=== PATIENT | male | born 1965 | race Caucasian/White ===

== ENCOUNTER 2022-11-10 12:32 | Inpatient (IN) | payer BC ==
[~2022-11-10] VITALS: Ht 172.7 cm; Wt 61.5 kg
[~2022-11-10 12:32] MED LIST: DILT-26 MT; EMPA10TA PO; LOSA100T32 PO
[2022-11-10] MEDS ORDERED: ASPIRIN 325MG EC TABLET PO ONE (19:00)
[2022-11-10 19:09] LABS: BASOPHILS % 0.5 % (0.0-2.0); EOSINOPHILS % 1.1 % (0.0-5.0); HEMATOCRIT. 29.4 % (42.0-52.0); LYMPHOCYTES % 11.8 % (20.0-50.0); MEAN CORPUSCULAR VOLUME 88.3 fL (80.0-94.0); MONOCYTES % 5.6 % (2.0-8.0); PLATELET 450 x1000/uL (130-400); RED BLOOD CELL COUNT 3.33 mill/uL (4.7-6.1); RED CELL DISTRIBUTION WIDTH 15.4 % (11.6-14.6)
[2022-11-10 19:20] LABS: CHLORIDE 109 mEq/L (98-107)
[2022-11-11] MEDS ORDERED: CEFTRIAXONE 1 G PREMIX 50 ML IV SCH (08:30)
[2022-11-11 09:16] VITALS: BP 147/86
[2022-11-11 09:25] VITALS: BP 147/86
[2022-11-11] MEDS ORDERED: DEXTROSE 50% WATER 50ML SYRINGE IV PRN ×2 (10:30→12:00)
[2022-11-11] MEDS ORDERED: FUROSEMIDE 40MG/4ML VIAL IV NR (11:30)
[2022-11-11] MEDS ORDERED: ONDANSETRON HCL 4MG/2ML INJ IV PRN (11:30)
[2022-11-11] MEDS ORDERED: ACETAMINOPHEN 325MG TABLET PO PRN (11:30)
[2022-11-11] MEDS ORDERED: MAGNESIUM/ALUMINUM HYDROXIDE/SIMETHICONE 30ML UDC PO PRN (11:30)
[2022-11-11] MEDS ORDERED: CLONIDINE 0.1MG TABLET PO PRN (11:30)
[2022-11-11] MEDS ORDERED: GUAIFENESIN 200MG/10ML SUGAR FREE UDC PO PRN (11:30)
[2022-11-11] MEDS: CEFTRIAXONE 1,000 MG in DEXTROSE 5% WATER 50 ML IV SCH (11:40)
[2022-11-11] MEDS ORDERED: BLOOD SUGAR DIAGNOSTIC STRIP TEST SCH (11:50)
[2022-11-11] MEDS ORDERED: INSULIN LISPRO 100 UNITS/ML SUBCUT SCH (12:20)
[2022-11-11] MEDS: INSULIN LISPRO 100 UNITS/ML SUBCUT SCH ×3 (12:20→21:00)
[2022-11-11] MEDS: BLOOD SUGAR DIAGNOSTIC STRIP TEST SCH ×3 (12:32→21:00)
[2022-11-11] MEDS ORDERED: METF-874 PO (12:44)
[2022-11-11] MEDS ORDERED: AMLO10TA80 PO (12:44)
[2022-11-11 12:46] VITALS: BP 132/85
[2022-11-11] MEDS ORDERED: ASPI-1497 PO (12:47)
[2022-11-11] MEDS ORDERED: ASPI-1406 PO (12:47)
[2022-11-11] MEDS ORDERED: CLOP-31 PO (12:55)
[2022-11-11] MEDS ORDERED: MECL-159 PO (12:55)
[2022-11-11] MEDS ORDERED: SEMA0.25 SQ (12:57)
[2022-11-11] MEDS ORDERED: ATOR-2 PO (12:57)
[2022-11-11] MEDS ORDERED: METF-416 MT (12:58)
[2022-11-11] MEDS ORDERED: AZITHROMYCIN 500 MG TABLET PO NR (14:30)
[2022-11-11] MEDS ORDERED: ENOXAPARIN 40MG/0.4ML SYR SUBCUT SCH (15:00)
[2022-11-11 15:21] LABS: CREATINE KINASE 87 IU/L (39-308); CREATINE KINASE MB FRACTION 2.8 ng/mL (0.5-3.6)
[2022-11-11 16:00] VITALS: BP 147/65
[2022-11-11 16:05] LABS: PROTHROMBIN TIME 11.2 sec (9.6-11.0)
[2022-11-11 16:37] LABS: FERRITIN 217 ng/mL (22-322)
[2022-11-11 16:47] LABS: VITAMIN B12 SERUM >2000 pg/mL pg/mL (211-911)
[2022-11-11 20:00] VITALS: BP 153/89
[2022-11-11 20:22] LABS: CREATINE KINASE MB FRACTION 2.5 ng/mL (0.5-3.6)
[2022-11-11] MEDS: FAMOTIDINE 20MG TABLET PO SCH (20:45)
[2022-11-11] MEDS: BUDESONIDE 0.5MG/2ML NEB HHN SCH (21:52)
[2022-11-11] MEDS: IPRATROPIUM BROMIDE (0.02%) 0.5MG/2.5ML NEB HHN SCH (21:53)
[2022-11-12] VITALS: BP 151/89
[2022-11-12 02:03] LABS: CREATINE KINASE MB FRACTION 2.7 ng/mL (0.5-3.6)
[2022-11-12] MEDS: IPRATROPIUM BROMIDE (0.02%) 0.5MG/2.5ML NEB HHN SCH ×4 (03:28→21:09)
[2022-11-12 04:00] VITALS: BP 136/82
[2022-11-12 06:17] LABS: BASOPHILS % 0.7 % (0.0-2.0); EOSINOPHILS % 1.3 % (0.0-5.0); HEMATOCRIT. 26.6 % (42.0-52.0); HEMOGLOBIN. 9.2 g/dL (14.0-18.0); LYMPHOCYTES % 15.9 % (20.0-50.0); MEAN CORPUSCULAR HEMOGLOBIN 30.6 pg (28.0-32.0); MEAN CORPUSCULAR VOLUME 88.1 fL (80.0-94.0); MEAN PLATELET VOLUME 6.2 fl (7.4-10.4); MONOCYTES % 6.3 % (2.0-8.0); NEUTROPHILS % 75.8 % (40.0-76.0); PLATELET 410 x1000/uL (130-400); RED BLOOD CELL COUNT 3.02 mill/uL (4.7-6.1); RED CELL DISTRIBUTION WIDTH 15.4 % (11.6-14.6)
[2022-11-12] MEDS: BLOOD SUGAR DIAGNOSTIC STRIP TEST SCH ×4 (06:42→20:57)
[2022-11-12] MEDS: INSULIN LISPRO 100 UNITS/ML SUBCUT SCH ×4 (07:20→21:01)
[2022-11-12 08:10] LABS: CHLORIDE 109 mEq/L (98-107)
[2022-11-12] MEDS: BUDESONIDE 0.5MG/2ML NEB HHN SCH (08:21)
[2022-11-12 08:31] LABS: T4 FREE 1.36 ng/dL (0.76-1.46)
[2022-11-12 08:40] VITALS: BP 150/80
[2022-11-12] MEDS ORDERED: ASPIRIN 81MG EC TABLET PO SCH (09:00)
[2022-11-12] MEDS: AMLODIPINE 5MG TABLET PO SCH (09:55)
[2022-11-12] MEDS: FAMOTIDINE 20MG TABLET PO SCH ×2 (09:55→20:56)
[2022-11-12] MEDS ORDERED: SODIUM BICARBONATE 4% (2.4MEQ) 5ML VIAL IV ONE (11:08)
[2022-11-12 12:01] VITALS: BP 146/69
[2022-11-12] MEDS: FERROUS SULFATE 325MG TABLET PO SCH ×2 (13:49→18:06)
[2022-11-12] MEDS: LOSARTAN POTASSIUM 25 MG TABLET PO SCH (13:49)
[2022-11-12] MEDS: CEFTRIAXONE 1,000 MG in DEXTROSE 5% WATER 50 ML IV SCH (13:50)
[2022-11-12 16:04] VITALS: BP 128/77
[2022-11-12 20:00] VITALS: BP 144/83
[2022-11-12 20:37] LABS: FOLIC ACID (FOLATE) SERUM > 20.00 ng/mL (>5.38)
[2022-11-12] MEDS: CARVEDILOL 3.125 MG TABLET PO SCH (20:57)
[2022-11-13] VITALS: BP 136/79
[2022-11-13] MEDS: IPRATROPIUM BROMIDE (0.02%) 0.5MG/2.5ML NEB HHN SCH ×4 (01:24→20:44)
[2022-11-13 04:00] VITALS: BP 140/80
[2022-11-13 06:15] LABS: HEMATOCRIT 27.4 % (42.0-52.0); HEMOGLOBIN 9.4 g/dL (14.0-18.0); MEAN CORPUSCULAR HEMOGLOBIN 30.6 pg (28.0-32.0); PLATELET 400 x1000/uL (130-400); RED BLOOD CELL COUNT 3.08 mill/uL (4.7-6.1); RED CELL DISTRIBUTION WIDTH 14.9 % (11.6-14.6)
[2022-11-13] MEDS: FERROUS SULFATE 325MG TABLET PO SCH ×3 (07:20→18:09)
[2022-11-13] MEDS: INSULIN LISPRO 100 UNITS/ML SUBCUT SCH ×4 (07:20→21:44)
[2022-11-13] MEDS: BLOOD SUGAR DIAGNOSTIC STRIP TEST SCH ×4 (07:36→21:42)
[2022-11-13 07:42] LABS: PHOSPHORUS 4.4 mg/dL (2.5-4.9)
[2022-11-13 08:04] VITALS: BP 143/85
[2022-11-13] MEDS ORDERED: SODIUM BICARBONATE 4% (2.4MEQ) 5ML VIAL IV ONE (09:37)
[2022-11-13 12:00] VITALS: BP 146/76
[2022-11-13] MEDS: DOCUSATE SODIUM 100MG CAPSULE PO PRN (12:47)
[2022-11-13] MEDS: LOSARTAN POTASSIUM 25 MG TABLET PO SCH (12:47)
[2022-11-13] MEDS: FAMOTIDINE 20MG TABLET PO SCH ×2 (12:47→21:41)
[2022-11-13] MEDS: CEFTRIAXONE 1,000 MG in DEXTROSE 5% WATER 50 ML IV SCH (12:49)
[2022-11-13] MEDS: AMLODIPINE 5MG TABLET PO SCH (12:56)
[2022-11-13] MEDS: CARVEDILOL 3.125 MG TABLET PO SCH (12:56)
[2022-11-13 16:00] VITALS: BP 149/87
[2022-11-13 20:00] VITALS: BP 142/87
[2022-11-13] MEDS: ATORVASTATIN CALCIUM 40MG TABLET PO SCH (21:41)
[2022-11-13] MEDS: CARVEDILOL 6.25 MG TABLET PO SCH (21:41)
[2022-11-14] VITALS: BP 138/78
[2022-11-14] MEDS: IPRATROPIUM BROMIDE (0.02%) 0.5MG/2.5ML NEB HHN SCH ×4 (01:09→21:10)
[2022-11-14 05:13] VITALS: BP 139/79
[2022-11-14] MEDS: BLOOD SUGAR DIAGNOSTIC STRIP TEST SCH ×4 (06:13→21:40)
[2022-11-14 06:41] LABS: BASOPHILS % 0.7 % (0.0-2.0); EOSINOPHILS % 1.7 % (0.0-5.0); HEMATOCRIT. 31.5 % (42.0-52.0); HEMOGLOBIN. 10.7 g/dL (14.0-18.0); LYMPHOCYTES % 16.3 % (20.0-50.0); MEAN CORPUSCULAR HEMOGLOBIN 30.4 pg (28.0-32.0); MEAN PLATELET VOLUME 6.5 fl (7.4-10.4); MONOCYTES % 7.4 % (2.0-8.0); NEUTROPHILS % 73.9 % (40.0-76.0); PLATELET 452 x1000/uL (130-400); RED BLOOD CELL COUNT 3.54 mill/uL (4.7-6.1); RED CELL DISTRIBUTION WIDTH 14.7 % (11.6-14.6)
[2022-11-14 06:59] LABS: CHLORIDE 104 mEq/L (98-107)
[2022-11-14 07:15] LABS: PHOSPHORUS 3.6 mg/dL (2.5-4.9)
[2022-11-14 08:04] VITALS: BP 129/78
[2022-11-14] MEDS: FUROSEMIDE 40MG/4ML VIAL IVP SCH (09:16)
[2022-11-14] MEDS: CARVEDILOL 6.25 MG TABLET PO SCH ×2 (09:16→21:40)
[2022-11-14] MEDS: FERROUS SULFATE 325MG TABLET PO SCH ×3 (09:16→17:34)
[2022-11-14] MEDS: AMLODIPINE 5MG TABLET PO SCH (09:16)
[2022-11-14] MEDS: LOSARTAN POTASSIUM 25 MG TABLET PO SCH (09:16)
[2022-11-14] MEDS: FAMOTIDINE 20MG TABLET PO SCH ×2 (09:16→21:39)
[2022-11-14] MEDS: DOCUSATE SODIUM 100MG CAPSULE PO PRN (09:16)
[2022-11-14] MEDS: INSULIN LISPRO 100 UNITS/ML SUBCUT SCH ×4 (09:18→21:00)
[2022-11-14 12:04] VITALS: BP 142/84
[2022-11-14] MEDS: CEFTRIAXONE 1,000 MG in DEXTROSE 5% WATER 50 ML IV SCH (13:49)
[2022-11-14] MEDS ORDERED: LACTULOSE 20G/30ML UDC PO NR (14:00)
[2022-11-14 16:00] VITALS: BP 149/86
[2022-11-14] MEDS: POLYETHYLENE GLYCOL 3350 (17GM) 1 DOSE PACK PO SCH (18:49)
[2022-11-14 20:00] VITALS: BP 152/80
[2022-11-14] MEDS: ATORVASTATIN CALCIUM 40MG TABLET PO SCH (21:40)
[2022-11-15] VITALS: BP 138/78
[2022-11-15] MEDS: IPRATROPIUM BROMIDE (0.02%) 0.5MG/2.5ML NEB HHN SCH ×2 (01:11→09:45)
[2022-11-15 04:00] VITALS: BP 134/74
[2022-11-15 06:48] LABS: HEMATOCRIT 27.9 % (42.0-52.0); HEMOGLOBIN 9.7 g/dL (14.0-18.0); MEAN CORPUSCULAR HEMOGLOBIN 30.5 pg (28.0-32.0); MEAN CORPUSCULAR VOLUME 87.4 fL (80.0-94.0); PLATELET 409 x1000/uL (130-400); RED BLOOD CELL COUNT 3.19 mill/uL (4.7-6.1); RED CELL DISTRIBUTION WIDTH 14.6 % (11.6-14.6)
[2022-11-15] MEDS: BLOOD SUGAR DIAGNOSTIC STRIP TEST SCH ×2 (07:01→11:50)
[2022-11-15 07:02] LABS: CHLORIDE 105 mEq/L (98-107)
[2022-11-15] MEDS: INSULIN LISPRO 100 UNITS/ML SUBCUT SCH ×2 (07:02→11:54)
[2022-11-15 07:08] LABS: PHOSPHORUS 3.5 mg/dL (2.5-4.9)
[2022-11-15] MEDS: FERROUS SULFATE 325MG TABLET PO SCH ×2 (09:28→11:57)
[2022-11-15] MEDS: DOCUSATE SODIUM 100MG CAPSULE PO PRN (09:28)
[2022-11-15] MEDS: LOSARTAN POTASSIUM 25 MG TABLET PO SCH (09:29)
[2022-11-15] MEDS: AMLODIPINE 5MG TABLET PO SCH (09:29)
[2022-11-15] MEDS: FAMOTIDINE 20MG TABLET PO SCH (09:29)
[2022-11-15] MEDS: FUROSEMIDE 40MG/4ML VIAL IVP SCH (09:29)
[2022-11-15] MEDS: POLYETHYLENE GLYCOL 3350 (17GM) 1 DOSE PACK PO SCH (09:29)
[2022-11-15] MEDS: CARVEDILOL 6.25 MG TABLET PO SCH (09:29)
[2022-11-15] MEDS ORDERED: ASPI-1497 PO ×2 (10:24→11:31)
[2022-11-15] MEDS ORDERED: AMLO5TAB88 PO ×2 (10:24→11:31)
[2022-11-15] MEDS ORDERED: LOSA25TA3 PO ×2 (10:24→11:31)
[2022-11-15] MEDS ORDERED: FURO-151 MT ×2 (10:24→11:31)
[2022-11-15] MEDS ORDERED: COR6 PO ×2 (10:24→11:31)
[2022-11-15] MEDS ORDERED: SORBITOL 70% SOLN 30ML PO SCH (11:00)
[2022-11-15] MEDS ORDERED: NA PHOS,M-B/NA PHOS,DI-BA ENEMA 118ML PR NR (11:30)
[2022-11-15] MEDS: CEFTRIAXONE 1,000 MG in DEXTROSE 5% WATER 50 ML IV SCH (11:57)
[2022-11-15 12:00] VITALS: BP 138/77
[2022-11-15 14:31] VITALS: BP 138/77
== END 2022-11-15 16:10 | disposition home or self-care (01) | DRG 291 ==
LOC: ER 12:40 → 3WST 11-11 05:37
PROVIDERS: ADMIT Internal Medicine; ATTEND Internal Medicine
PROC: 0W9B3ZZ Drainage of Left Pleural Cavity, Percutaneous Approach (ICD-10-PCS; principal; 2022-11-12)
PROC: 0W993ZZ Drainage of Right Pleural Cavity, Percutaneous Approach (ICD-10-PCS; 2022-11-13)
DX: I11.0 Hypertensive heart disease with heart failure (principal); I50.23 Acute on chronic systolic (congestive) heart failure; J96.01 Acute respiratory failure with hypoxia; N17.9 Acute kidney failure, unspecified; E44.1 Mild protein-calorie malnutrition; I31.39 Other pericardial effusion (noninflammatory); J91.8 Pleural effusion in other conditions classified elsewhere; D64.9 Anemia, unspecified; E11.9 Type 2 diabetes mellitus without complications; I27.29 Other secondary pulmonary hypertension; E78.00 Pure hypercholesterolemia, unspecified; D72.829 Elevated white blood cell count, unspecified; Z20.822 Contact with and (suspected) exposure to COVID-19; I25.2 Old myocardial infarction; Z86.16 Personal history of COVID-19; Z86.73 Personal history of transient ischemic attack (TIA), and cerebral infarction without residual deficits; Z87.891 Personal history of nicotine dependence; Z68.20 Body mass index [BMI] 20.0-20.9, adult
CPT/HCPCS: 32555; 36415; 71045; 76604; 80048; 80053; 80061; 82040; 82550; 82553; 82607; 82728; 82746; 82962; 83036; 83540; 83550; 83605; 83615; 83735; 83880; 83986; 84100; 84145; 84439; 84443; 84484; 85025; 85027; 87426; 93005; 93306; 93970; 94640; 97162; 97166; 99285; C9803; J0696; J1650; J1815; J1940; J3490; J7060; J7626

== ENCOUNTER 2023-11-15 16:34 | Inpatient (IN) | payer BC, MEDICAID ==
[~2023-11-15] VITALS: Ht 170.2 cm; Wt 54.0 kg
[~2023-11-15 16:34] MED LIST changes: +AMLO5TAB88 PO; +ASPI-1497 PO; +ATOR-2 PO; +COR6 PO; -DILT-26 MT; -EMPA10TA PO; +FURO-151 MT; +LOSA-412 PO; -LOSA100T32 PO; +METF-416 MT; +SEMA0.25 SQ
[2023-11-15 19:26] LABS: PROTHROMBIN TIME 11.2 sec (9.6-11.0)
[2023-11-15 19:32] LABS: HEMATOCRIT. 27.7 % (42.0-52.0); HEMOGLOBIN. 9.6 g/dL (14.0-18.0); LYMPHOCYTES % 22.3 % (20.0-50.0); MEAN CORPUSCULAR HEMOGLOBIN 32.8 pg (28.0-32.0); MEAN CORPUSCULAR HGB CONC 34.7 g/dL (31.0-37.0); MEAN CORPUSCULAR VOLUME 94.7 fL (80.0-94.0); NEUTROPHILS % 66.7 % (40.0-76.0); PLATELET 280 x1000/uL (130-400); RED BLOOD CELL COUNT 2.93 mill/uL (4.7-6.1); RED CELL DISTRIBUTION WIDTH 15.7 % (11.6-14.6); WHITE BLOOD COUNT 9.5 x1000/uL (4.5-11.0)
[2023-11-15 19:33] LABS: ALANINE AMINOTRANSFERASE 10 IU/L (10-49); ALBUMIN 3.4 g/dL (3.2-4.8); ASPARTATE AMINOTRANSFERASE 24 IU/L (<34); BILIRUBIN TOTAL 0.3 mg/dL (0.1-1.0); CALCIUM 8.2 mg/dL (8.7-10.4); CARBON DIOXIDE 32 mEq/L (21-32); CHLORIDE 101 mEq/L (98-107); CREATININE 2.1 mg/dL (0.6-1.3); GLUCOSE 158 mg/dL (70-105); POTASSIUM 4.5 mEq/L (3.5-5.1); PROTEIN TOTAL 6.3 g/dL (6.0-8.3); SODIUM 137 mEq/L (136-145); TROPONIN I HIGH SENSITIVITY 33 ng/L (3.0-53); UREA NITROGEN BLOOD 43 mg/dL (9-23)
[2023-11-15 19:35] LABS: DIFFERENTIAL COMMENT 1
[2023-11-16] VITALS (10 sets, daily range): BP systolic 150–179; BP diastolic 77–95; PULSE 74–82; RESP 18–20; TEMP 97.3–98; O2SAT 97
[2023-11-16] MEDS: FUROSEMIDE 40MG/4ML VIAL IVP ONE (00:20)
[2023-11-16] MEDS ORDERED: IPRATROPIUM BROMIDE (0.02%) 0.5MG/2.5ML NEB HHN PRN (02:30)
[2023-11-16] MEDS ORDERED: DEXTROSE 50% WATER 50ML SYRINGE IV PRN (02:45)
[2023-11-16] MEDS ORDERED: FUROSEMIDE 40MG/4ML VIAL IVP NR (03:00)
[2023-11-16] MEDS: CLONIDINE 0.1MG TABLET PO PRN (04:06)
[2023-11-16] MEDS ORDERED: CLOP75TA33 PO (07:28)
[2023-11-16] MEDS: BLOOD SUGAR DIAGNOSTIC STRIP TEST SCH (07:40)
[2023-11-16] MEDS ORDERED: METFORMIN HCL 500MG TABLET PO SCH (08:10)
[2023-11-16] MEDS: INSULIN LISPRO 100 UNITS/ML SUBCUT SCH (08:10)
[2023-11-16] MEDS: IPRATROPIUM BROMIDE (0.02%) 0.5MG/2.5ML NEB HHN SCH (08:11)
[2023-11-16] MEDS: ENOXAPARIN 40MG/0.4ML SYR SUBCUT SCH (09:15)
[2023-11-16] MEDS: FUROSEMIDE 100MG/10ML VIAL IVP SCH (09:15)
[2023-11-16] MEDS ORDERED: FUROSEMIDE 40MG/4ML VIAL IVP SCH (11:15)
[2023-11-16 12:35] LABS: HEMATOCRIT 27.7 % (42.0-52.0); HEMOGLOBIN 9.8 g/dL (14.0-18.0); MEAN CORPUSCULAR HEMOGLOBIN 33.3 pg (28.0-32.0); MEAN CORPUSCULAR HGB CONC 35.3 g/dL (31.0-37.0); MEAN CORPUSCULAR VOLUME 94.5 fL (80.0-94.0); PLATELET 279 x1000/uL (130-400); RED BLOOD CELL COUNT 2.93 mill/uL (4.7-6.1); RED CELL DISTRIBUTION WIDTH 15.6 % (11.6-14.6); WHITE BLOOD COUNT 5.9 x1000/uL (4.5-11.0)
[2023-11-16 13:30] LABS: CALCIUM 8.6 mg/dL (8.7-10.4); CARBON DIOXIDE 33 mEq/L (21-32); CHLORIDE 104 mEq/L (98-107); CREATININE 2.1 mg/dL (0.6-1.3); GLUCOSE 193 mg/dL (70-105); PHOSPHORUS 3.1 mg/dL (2.5-4.9); POTASSIUM 3.8 mEq/L (3.5-5.1); SODIUM 138 mEq/L (136-145); T4 FREE 1.28 ng/dL (0.89-1.76); THYROID STIMULATING HORMONE 1.98 uIU/mL (0.55-4.78); UREA NITROGEN BLOOD 47 mg/dL (9-23)
[2023-11-16] MEDS ORDERED: CARV12.545 PO (14:13)
[2023-11-16] MEDS: MAGNESIUM 2 G PREMIX 50 ML IV NR (15:21)
[2023-11-16] MEDS: FUROSEMIDE 40MG/4ML VIAL IVP SCH (16:29)
[2023-11-16] MEDS: LOSARTAN 50 MG TABLET PO SCH (17:40)
[2023-11-16 20:16] LABS: CALCIUM 8.7 mg/dL (8.7-10.4); CREATININE 2.1 mg/dL (0.6-1.3)
[2023-11-17] VITALS (11 sets, daily range): BP systolic 137–189; BP diastolic 70–99; PULSE 66–80; RESP 14–22; TEMP 97.3–98.2
[2023-11-17 06:09] LABS: BASOPHILS % 0.6 % (0.0-2.0); EOSINOPHILS % 3.6 % (0.0-5.0); HEMATOCRIT. 30.8 % (42.0-52.0); HEMOGLOBIN. 10.6 g/dL (14.0-18.0); MEAN CORPUSCULAR HEMOGLOBIN 32.7 pg (28.0-32.0); MEAN CORPUSCULAR HGB CONC 34.6 g/dL (31.0-37.0); MEAN CORPUSCULAR VOLUME 94.5 fL (80.0-94.0); MEAN PLATELET VOLUME 6.8 fl (7.4-10.4); MONOCYTES % 7.1 % (2.0-8.0); NEUTROPHILS % 63.7 % (40.0-76.0); PLATELET 299 x1000/uL (130-400); RED BLOOD CELL COUNT 3.26 mill/uL (4.7-6.1); RED CELL DISTRIBUTION WIDTH 15.5 % (11.6-14.6)
[2023-11-17 06:40] LABS: ALANINE AMINOTRANSFERASE 14 IU/L (10-49); ALBUMIN 3.2 g/dL (3.2-4.8); ASPARTATE AMINOTRANSFERASE 21 IU/L (<34); BILIRUBIN TOTAL 0.5 mg/dL (0.1-1.0); CALCIUM 8.4 mg/dL (8.7-10.4); CARBON DIOXIDE 33 mEq/L (21-32); CHLORIDE 101 mEq/L (98-107); CREATININE 2.1 mg/dL (0.6-1.3); GLUCOSE 105 mg/dL (70-105); IRON 48 ug/dL (65-175); PHOSPHORUS 3.8 mg/dL (2.5-4.9); POTASSIUM 3.9 mEq/L (3.5-5.1); PROTEIN TOTAL 6.7 g/dL (6.0-8.3); SODIUM 140 mEq/L (136-145); TOTAL IRON BINDING CAPACITY 215 ug/dl (250-425); UREA NITROGEN BLOOD 46 mg/dL (9-23)
[2023-11-17] MEDS ORDERED: TAMS-11 PO (07:28)
[2023-11-17] MEDS: CLOPIDOGREL 75MG TABLET PO SCH (08:59)
[2023-11-17] MEDS: AMLODIPINE 5MG TABLET PO SCH (09:00)
[2023-11-17] MEDS: ASPIRIN 81MG EC TABLET PO SCH (09:00)
[2023-11-17] MEDS ORDERED: LOSARTAN 25 MG TABLET PO SCH (09:00)
[2023-11-17] MEDS ORDERED: NON FORMULARY PATIENT HOME MED XX SCH (10:30)
[2023-11-17 14:11] LABS: FERRITIN 471 ng/mL (22-322); FOLIC ACID (FOLATE) SERUM > 20.00 ng/mL (>5.38); VITAMIN B12 SERUM 1480 pg/mL (211-911)
[2023-11-17] MEDS: HYDRALAZINE HCL 25MG TABLET PO SCH (14:25)
[2023-11-17] MEDS: SACUBITRIL/VALSARTAN 24MG/26MG TABLET PO SCH (17:23)
[2023-11-17] MEDS: CARVEDILOL 3.125 MG TABLET PO SCH (21:07)
[2023-11-18] VITALS (11 sets, daily range): BP systolic 84–157; BP diastolic 52–83; PULSE 70–96; RESP 16–20; TEMP 97.5–98.6; O2SAT 95–96
[2023-11-18 07:11] LABS: BASOPHILS % 0.9 % (0.0-2.0); EOSINOPHILS % 3.2 % (0.0-5.0); HEMATOCRIT. 32.1 % (42.0-52.0); LYMPHOCYTES % 22.6 % (20.0-50.0); MEAN CORPUSCULAR HEMOGLOBIN 32.3 pg (28.0-32.0); MEAN CORPUSCULAR HGB CONC 34.3 g/dL (31.0-37.0); MEAN CORPUSCULAR VOLUME 94.1 fL (80.0-94.0); MEAN PLATELET VOLUME 6.9 fl (7.4-10.4); MONOCYTES % 8.5 % (2.0-8.0); NEUTROPHILS % 64.8 % (40.0-76.0); PLATELET 293 x1000/uL (130-400); RED BLOOD CELL COUNT 3.41 mill/uL (4.7-6.1); RED CELL DISTRIBUTION WIDTH 15.5 % (11.6-14.6); WHITE BLOOD COUNT 6.7 x1000/uL (4.5-11.0)
[2023-11-18 07:13] LABS: CALCIUM 8.1 mg/dL (8.7-10.4); CARBON DIOXIDE 33 mEq/L (21-32); CHLORIDE 97 mEq/L (98-107); GLUCOSE 113 mg/dL (70-105); PHOSPHORUS 4.8 mg/dL (2.5-4.9); POTASSIUM 3.5 mEq/L (3.5-5.1); SODIUM 138 mEq/L (136-145); UREA NITROGEN BLOOD 43 mg/dL (9-23)
[2023-11-18] MEDS: AMLODIPINE 10MG TABLET PO SCH (10:12)
[2023-11-18] MEDS: METOLAZONE 2.5MG TABLET PO SCH (10:13)
[2023-11-18] MEDS: ENOXAPARIN 30MG/0.3ML SYR SUBCUT SCH (10:14)
[2023-11-18] MEDS: POTASSIUM CHLORIDE 20MEQ TABLET SR PO NR (14:55)
[2023-11-18] MEDS: LACTULOSE 20G/30ML UDC PO NR (17:46)
[2023-11-19] VITALS (9 sets, daily range): BP systolic 117–136; BP diastolic 58–75; PULSE 70–77; RESP 16–20; TEMP 97.6–99.1
[2023-11-19 05:52] LABS: BASOPHILS % 0.5 % (0.0-2.0); EOSINOPHILS % 2.2 % (0.0-5.0); HEMATOCRIT. 31.1 % (42.0-52.0); HEMOGLOBIN. 10.8 g/dL (14.0-18.0); LYMPHOCYTES % 19.7 % (20.0-50.0); MEAN CORPUSCULAR HEMOGLOBIN 32.4 pg (28.0-32.0); MEAN CORPUSCULAR HGB CONC 34.7 g/dL (31.0-37.0); MEAN CORPUSCULAR VOLUME 93.4 fL (80.0-94.0); MEAN PLATELET VOLUME 6.9 fl (7.4-10.4); MONOCYTES % 7.8 % (2.0-8.0); NEUTROPHILS % 69.8 % (40.0-76.0); PLATELET 303 x1000/uL (130-400); RED BLOOD CELL COUNT 3.33 mill/uL (4.7-6.1); RED CELL DISTRIBUTION WIDTH 15.7 % (11.6-14.6)
[2023-11-19 06:19] LABS: CALCIUM 8.3 mg/dL (8.7-10.4); CARBON DIOXIDE 35 mEq/L (21-32); CHLORIDE 99 mEq/L (98-107); CREATININE 2.2 mg/dL (0.6-1.3); GLUCOSE 96 mg/dL (70-105); PHOSPHORUS 4.3 mg/dL (2.5-4.9); POTASSIUM 4.2 mEq/L (3.5-5.1); SODIUM 138 mEq/L (136-145); UREA NITROGEN BLOOD 48 mg/dL (9-23)
[2023-11-19] MEDS: SODIUM BICARBONATE 4% (2.4MEQ) 5ML VIAL IV ONE (22:06)
[2023-11-20] VITALS (9 sets, daily range): BP systolic 125–156; BP diastolic 56–80; PULSE 74–81; RESP 16–20; TEMP 97.6–99.5
[2023-11-20 07:30] LABS: BASOPHILS % 0.6 % (0.0-2.0); EOSINOPHILS % 3.8 % (0.0-5.0); HEMATOCRIT. 30.7 % (42.0-52.0); HEMOGLOBIN. 10.7 g/dL (14.0-18.0); LYMPHOCYTES % 23.7 % (20.0-50.0); MEAN CORPUSCULAR HEMOGLOBIN 32.6 pg (28.0-32.0); MEAN CORPUSCULAR HGB CONC 34.7 g/dL (31.0-37.0); MEAN CORPUSCULAR VOLUME 93.9 fL (80.0-94.0); MONOCYTES % 9.3 % (2.0-8.0); NEUTROPHILS % 62.6 % (40.0-76.0); PLATELET 297 x1000/uL (130-400); RED BLOOD CELL COUNT 3.27 mill/uL (4.7-6.1); RED CELL DISTRIBUTION WIDTH 15.7 % (11.6-14.6); WHITE BLOOD COUNT 7.5 x1000/uL (4.5-11.0)
[2023-11-20 07:47] LABS: CALCIUM 8.1 mg/dL (8.7-10.4); CARBON DIOXIDE 37 mEq/L (21-32); CHLORIDE 94 mEq/L (98-107); CREATININE 2.2 mg/dL (0.6-1.3); GLUCOSE 91 mg/dL (70-105); PHOSPHORUS 4.6 mg/dL (2.5-4.9); POTASSIUM 3.7 mEq/L (3.5-5.1); SODIUM 137 mEq/L (136-145); UREA NITROGEN BLOOD 48 mg/dL (9-23)
[2023-11-20] MEDS: DOCUSATE SODIUM 250MG CAPSULE PO PRN (17:23)
[2023-11-21] VITALS (7 sets, daily range): BP systolic 112–157; BP diastolic 66–86; PULSE 73–82; RESP 17–20; TEMP 97.4–98.6
[2023-11-21 07:59] LABS: HEMOGLOBIN 10.9 g/dL (14.0-18.0); MEAN CORPUSCULAR HEMOGLOBIN 32.2 pg (28.0-32.0); MEAN CORPUSCULAR HGB CONC 34.1 g/dL (31.0-37.0); MEAN CORPUSCULAR VOLUME 94.2 fL (80.0-94.0); PLATELET 305 x1000/uL (130-400); RED BLOOD CELL COUNT 3.39 mill/uL (4.7-6.1); RED CELL DISTRIBUTION WIDTH 15.9 % (11.6-14.6); WHITE BLOOD COUNT 7.1 x1000/uL (4.5-11.0)
[2023-11-21 08:15] LABS: CALCIUM 8.5 mg/dL (8.7-10.4); CARBON DIOXIDE 39 mEq/L (21-32); CHLORIDE 94 mEq/L (98-107); CREATININE 2.3 mg/dL (0.6-1.3); GLUCOSE 96 mg/dL (70-105); PHOSPHORUS 3.7 mg/dL (2.5-4.9); POTASSIUM 4.1 mEq/L (3.5-5.1); SODIUM 137 mEq/L (136-145); UREA NITROGEN BLOOD 57 mg/dL (9-23)
[2023-11-21] MEDS: DOCUSATE SODIUM 250MG CAPSULE PO SCH (21:21)
[2023-11-21] MEDS: POLYETHYLENE GLYCOL 3350 (17GM) 1 DOSE PACK PO NR (21:21)
[2023-11-22] VITALS: BP 154/79; PULSE 77; RESP 18; TEMP 98.1
[2023-11-22 04:00] VITALS: BP 130/73; PULSE 74; RESP 18; TEMP 98.7
[2023-11-22 06:50] LABS: CALCIUM 8.7 mg/dL (8.7-10.4); CARBON DIOXIDE 38 mEq/L (21-32); CHLORIDE 93 mEq/L (98-107); CREATININE 2.4 mg/dL (0.6-1.3); GLUCOSE 116 mg/dL (70-105); PHOSPHORUS 3.8 mg/dL (2.5-4.9); SODIUM 136 mEq/L (136-145); UREA NITROGEN BLOOD 61 mg/dL (9-23)
[2023-11-22 08:00] VITALS: BP 134/71; PULSE 78; RESP 19; TEMP 98.6
[2023-11-22 12:00] VITALS: BP 102/64; PULSE 85; RESP 20; TEMP 97.7
[2023-11-22] MEDS: PANTOPRAZOLE 40MG DR TABLET PO SCH (12:53)
[2023-11-22 16:00] VITALS: BP 102/79; PULSE 76; RESP 19; TEMP 97.9
[2023-11-22 20:00] VITALS: BP 115/62; PULSE 75; RESP 18; TEMP 98.6
[2023-11-23] VITALS: BP 132/67; PULSE 82; RESP 18; TEMP 98.1
[2023-11-23 04:00] VITALS: BP 134/70; PULSE 79; RESP 18; TEMP 98.3
[2023-11-23 07:38] LABS: CALCIUM 8.7 mg/dL (8.7-10.4); CARBON DIOXIDE 34 mEq/L (21-32); CHLORIDE 94 mEq/L (98-107); CREATININE 2.4 mg/dL (0.6-1.3); GLUCOSE 139 mg/dL (70-105); PHOSPHORUS 3.2 mg/dL (2.5-4.9); POTASSIUM 4.5 mEq/L (3.5-5.1); SODIUM 135 mEq/L (136-145); UREA NITROGEN BLOOD 63 mg/dL (9-23)
[2023-11-23 08:00] VITALS: BP 133/74; PULSE 79; RESP 20; TEMP 97.8
[2023-11-23 12:00] VITALS: BP 127/86; PULSE 84; RESP 20; TEMP 98
[2023-11-23 15:24] LABS: PARTIAL THROMBOPLASTIN TIME 28.2 sec (23.4-31.0); PROTHROMBIN TIME 11.1 sec (9.6-11.0)
[2023-11-23 16:00] VITALS: BP 110/68; PULSE 73; RESP 20; TEMP 98.1
[2023-11-23] MEDS: FUROSEMIDE 40MG/4ML VIAL IVP SCH (18:23)
[2023-11-23 20:00] VITALS: BP 141/71; PULSE 72; RESP 19; TEMP 97.9
[2023-11-24] VITALS: BP 137/73; PULSE 86; RESP 19; TEMP 97.3
[2023-11-24 04:00] VITALS: BP 136/62; PULSE 87; RESP 19; TEMP 98.2
[2023-11-24 06:05] LABS: BASOPHILS % 0.5 % (0.0-2.0); EOSINOPHILS % 1.4 % (0.0-5.0); HEMATOCRIT. 31.5 % (42.0-52.0); HEMOGLOBIN. 10.9 g/dL (14.0-18.0); LYMPHOCYTES % 7.9 % (20.0-50.0); MEAN CORPUSCULAR HEMOGLOBIN 32.7 pg (28.0-32.0); MEAN CORPUSCULAR HGB CONC 34.4 g/dL (31.0-37.0); MEAN CORPUSCULAR VOLUME 94.9 fL (80.0-94.0); MEAN PLATELET VOLUME 7.1 fl (7.4-10.4); MONOCYTES % 6.4 % (2.0-8.0); NEUTROPHILS % 83.8 % (40.0-76.0); PLATELET 322 x1000/uL (130-400); RED BLOOD CELL COUNT 3.32 mill/uL (4.7-6.1); RED CELL DISTRIBUTION WIDTH 15.4 % (11.6-14.6); WHITE BLOOD COUNT 9.8 x1000/uL (4.5-11.0)
[2023-11-24 06:13] LABS: ALANINE AMINOTRANSFERASE 9 IU/L (10-49); ALBUMIN 3.5 g/dL (3.2-4.8); ASPARTATE AMINOTRANSFERASE 13 IU/L (<34); BILIRUBIN TOTAL 0.5 mg/dL (0.1-1.0); CALCIUM 8.7 mg/dL (8.7-10.4); CARBON DIOXIDE 36 mEq/L (21-32); CHLORIDE 94 mEq/L (98-107); CREATININE 2.5 mg/dL (0.6-1.3); GLUCOSE 173 mg/dL (70-105); LACTATE DEHYDROGENASE 175 IU/L (120-246); PHOSPHORUS 3.1 mg/dL (2.5-4.9); POTASSIUM 4.2 mEq/L (3.5-5.1); SODIUM 137 mEq/L (136-145); UREA NITROGEN BLOOD 63 mg/dL (9-23)
[2023-11-24] MEDS: FAMOTIDINE 20MG TABLET PO SCH (08:33)
[2023-11-24 08:55] VITALS: BP 126/61; PULSE 84; RESP 18; TEMP 97.6
[2023-11-24] MEDS ORDERED: SODIUM BICARBONATE 4% (2.4MEQ) 5ML VIAL IV ONE (09:00)
[2023-11-24] MEDS ORDERED: FUROSEMIDE 40MG TABLET PO SCH (09:00)
[2023-11-24] MEDS ORDERED: FUROSEMIDE 40MG/4ML VIAL IVP SCH (09:00)
[2023-11-24] MEDS: ACETAMINOPHEN 325MG TABLET PO PRN (11:25)
[2023-11-24 12:00] VITALS: BP 118/79; PULSE 69; RESP 18; TEMP 97.6
[2023-11-24 12:29] LABS: PROTEIN BODY FLUID 3.2 gm/dL
[2023-11-24 12:46] LABS: BODY FLUID WBC 319 /cu mm (0-200)
[2023-11-24 12:47] LABS: BODY FLUID RBC 276 /cu mm (0-2000)
[2023-11-24 12:52] LABS: BODY FLUID MONOCYTES 94 %
[2023-11-24] MEDS ORDERED: FURO-151 MT (13:31)
[2023-11-24] MEDS ORDERED: SACU1TAB MT (13:31)
[2023-11-24] MEDS ORDERED: EMPA10TA MT (13:31)
[2023-11-24] MEDS ORDERED: CARV3.1242 MT (13:31)
[2023-11-24 13:57] VITALS: BP 118/76; PULSE 69; TEMP 97.8; O2SAT 95
[2023-11-24 16:00] VITALS: BP 130/87; PULSE 84; RESP 18; TEMP 97.7
== END 2023-11-24 18:25 | disposition home or self-care (01) | DRG 194 ==
LOC: ER 16:34 → 7WST 11-16 00:57 → EDBEDREQ 11-16 01:05
PROVIDERS: ADMIT Preventive Medicine Clinical Informatics; ATTEND Preventive Medicine Clinical Informatics
PROC: 0W993ZZ Drainage of Right Pleural Cavity, Percutaneous Approach (ICD-10-PCS; principal; 2023-11-18)
PROC: 0W9B3ZZ Drainage of Left Pleural Cavity, Percutaneous Approach (ICD-10-PCS; 2023-11-24)
DX: I13.0 Hypertensive heart and chronic kidney disease with heart failure and stage 1 through stage 4 chronic kidney disease, or unspecified chronic kidney disease (principal); N17.9 Acute kidney failure, unspecified; E87.3 Alkalosis; E11.22 Type 2 diabetes mellitus with diabetic chronic kidney disease; D63.8 Anemia in other chronic diseases classified elsewhere; J93.9 Pneumothorax, unspecified; E78.00 Pure hypercholesterolemia, unspecified; I25.10 Atherosclerotic heart disease of native coronary artery without angina pectoris; I25.5 Ischemic cardiomyopathy; I65.22 Occlusion and stenosis of left carotid artery; J44.9 Chronic obstructive pulmonary disease, unspecified; T50.2X5A Adverse effect of carbonic-anhydrase inhibitors, benzothiadiazides and other diuretics, initial encounter; N18.32 Chronic kidney disease, stage 3b; N40.0 Benign prostatic hyperplasia without lower urinary tract symptoms; I50.23 Acute on chronic systolic (congestive) heart failure; E11.51 Type 2 diabetes mellitus with diabetic peripheral angiopathy without gangrene; Z95.1 Presence of aortocoronary bypass graft; Z89.512 Acquired absence of left leg below knee; Z79.899 Other long term (current) drug therapy; Z79.84 Long term (current) use of oral hypoglycemic drugs; Z79.82 Long term (current) use of aspirin; Z79.02 Long term (current) use of antithrombotics/antiplatelets; Z87.891 Personal history of nicotine dependence; Z86.73 Personal history of transient ischemic attack (TIA), and cerebral infarction without residual deficits; Y92.89 Other specified places as the place of occurrence of the external cause
CPT/HCPCS: 32555; 36415; 71045; 71250; 76604; 80048; 80053; 82607; 82728; 82746; 82962; 83036; 83540; 83550; 83615; 83735; 83880; 83986; 84100; 84439; 84443; 84484; 85025; 85027; 88108; 93005; 93306; 94640; 97162; 97166; 97530; 97535; 99285; A6261; J1650; J1815; J1940; J3475; J3490